=== PATIENT | male | born 1950 | race Caucasian/White ===

== ENCOUNTER 2019-01-04 03:13 | Emergency (ER) | payer MEDICARE ==
[~2019-01-04] VITALS: Ht 172.7 cm; Wt 107.5 kg
[~2019-01-04 03:13] MED LIST: ALPRAZOLAM 0.0.25 M1 PO; ALTACE5 M1 PO; ASPIRIN325; CYCLOBENZAPRINE10 MG PO; DIOVAN; DIOVAN160 MG PO; FISH OIL 1,0001 EAC5; HYDROCODON-ACE1 EAC7 PO; LISINOPRIL40 MG PO; MEDROLDOSEPACK PO; METOPROLOL; MULTIVITAMINS1 EAC7; NAPROSYN500 MG PO; NITROSTAT0.4 MG SUBLING; PERCOCET 5-3251 EACH PO; PLAVIX 75 MG TA75 M1 PO; RAMIPRIL; SIMVASTATIN; SIMVASTATIN80 MG PO; TOPROL XL25 MG PO; TRAMADOL 50 MG50 MG PO
[2019-01-04] MEDS ORDERED: MEDROLDOSEPACK PO (04:29)
[2019-01-04 04:44] VITALS: BP 152/66
== END 2019-01-04 04:51 | disposition home or self-care (01) ==
LOC: M.ERS 03:13
DX: M25.552 Pain in left hip (principal); I10 Essential (primary) hypertension; Z95.5 Presence of coronary angioplasty implant and graft

== ENCOUNTER 2019-12-25 22:10 | Inpatient (IN) | payer MEDICARE ==
[~2019-12-25] VITALS: Ht 172.7 cm; Wt 117.9 kg
--- NOTE | ~2019-12-25 | CON ---
[address] [address] CONSULTATION Name: NARENNORMA Room: [address] IN M.R.#: [id number] Admission: 12/26/19 Attend Phys: Dillon Gu MD Discharge: Date of : 54 Report #: [id number] THIS REPORT FOR: //name// cc: Juan F Tobin MD, Frank W. MD ~ THIS REPORT FOR: //name// CC: Dillon Tobin DATE OF SERVICE: 12/26/2019 REQUESTING PHYSICIAN: Dillon Gu MD INDICATION FOR CONSULTATION: Shortness of breath. HISTORY OF PRESENT ILLNESS: This is a 69-year-old gentleman. Past medical history is as mentioned below. This does include a history of COPD. The patient uses p.r.n. albuterol, but does not take any other inhalers regularly at home. He is an active smoker until last month. The patient has now presented with progressively increasing shortness of breath over the last 2 weeks. He has had a cough as well, but there is minimal sputum. There is no chest pain. He does not have upper respiratory complaints. He does, however, have swelling of lower extremities. There is no calf pain. The patient has had disturbed sleep at night as well as sleepiness during the day. These complaints are at baseline. The patient has previously not been on supplemental oxygen. Since admission, he has been needing oxygen at 2-3 liters to maintain O2 saturation in the low 90s. This hypoxia is new. I asked him 12 questions for review of systems. The patient's review of systems is negative except as mentioned above. PAST MEDICAL HISTORY: COPD; obesity with a body mass index of 39.6; coronary artery disease, has a history of stents in 2008, I do not have any measure of his left ventricular ejection fraction available at this time; hypertension; hernia repair; surgery on left femoral artery for a clot; chronic renal insufficiency. The patient's baseline creatinine is around 1.3. The patient states that his PCP told him that he had renal injury from meloxicam. SOCIAL HISTORY: He has an extensive history of smoking more than a pack a day for several decades, discontinued 1 month ago. No known history of heavy alcohol use or illegal drug use except the patient says that he vapes as well at times. CURRENT MEDICATIONS: List in [facility] [place] [address] CONSULTATION Name: NORMA SNEED Room: [address]#: [id number] Admission: 12/26/19 Attend Phys: Dillon Gu MD Discharge: Date of : 54 Report #: [id number] HOME MEDICATIONS: In [facility] also reviewed. ALLERGIES: No known drug allergies. FAMILY HISTORY: No pertinent family history. PHYSICAL EXAMINATION: GENERAL: Alert, awake and oriented, does not appear to be in any distress at this time. VITAL SIGNS: He has a pulse of 100 and a blood pressure of 164/66. He has a low-grade elevation in temperature to 37.4, respiratory rate around 16-17 at the time of my examination. He is saturating 96%. He is on 2 liters oxygen via nasal cannula. HEENT: Head is normocephalic and atraumatic. He appears to have a narrow airway. NECK: Does not show raised JVP, asymmetry, mass, or lymph nodes. CHEST: Symmetrical expansion on inspection and palpation. On auscultation, breath sounds are bilaterally equal, decreased. No added sounds. HEART: Regular, no murmur. ABDOMEN: Soft and nontender. EXTREMITIES: Lower extremities show 2+ edema. There is no calf tenderness. SKIN: Dry and intact. NEUROLOGICAL: Moves all extremities bilaterally equally and spontaneously with no focal deficit identified. LABORATORY DATA: The patient has had a CTA chest performed today. I reviewed the CT as well as the films. There are minimal radiopaque densities at bilateral lung bases, which could indicate small areas of atelectasis or eschar. Infiltrates will be unlikely, but small infiltrates are possible. The patient's CBC as well as chemistries are in Plix and these are reviewed. D-dimer was mildly elevated. COVID-19 PCR is pending. COVID-19 antigen was negative. ASSESSMENT/PLAN: 1. Shortness of breath. Primarily, the patient appears to have shortness of breath secondary to fluid overload. There likely is a smaller component of bronchospasm as well. There is no definite evidence of infection at this time; however, I feel that it is reasonable to rule out COVID-19. COVID-19 PCR is pending at this time. 2. Fluid overload. The etiology of the patient having fluid overload needs to be evaluated further. Note that his creatinine at baseline is mildly elevated. Also, the possibility of congestive heart failure needs to be evaluated. The patient does not appear to be in any distress at this time and he has recently received IV dye. Therefore, I will repeat labs now; however, I did not order any Lasix at this time. This will be a consideration later. Recommend a 2D echo. Also [place] [address] CONSULTATION Name: NORMA SNEED Room: [address]#: [id number] Admission: 12/26/19 Attend Phys: Dillon Gu MD Discharge: Date of : 54 Report #: [id number] 3. Chronic obstructive pulmonary disease exacerbation. I do feel that there is a component of bronchospasm and therefore I do feel that we should continue with DuoNebs. Suggest keeping the patient in a negative-pressure room until the COVID-19 PCR is back. We will continue Solu-Medrol, but we will begin to taper. 4. Chronic renal insufficiency. Baseline creatinine 1.3, which is his current also. 5. Hypersomnia/sleep disturbances. It appears likely that the patient has underlying obstructive sleep apnea. Recommend an outpatient sleep study later. Also recommend weight loss. 6. Acute bronchitis. While at first glance, it appears unlikely that infection is playing a major role in the patient's current presentation, I feel that it is reasonable to treat him with broad-spectrum antibiotics. The patient is currently on ceftriaxone. I will continue the same. 7. Coronary artery disease, history of stents. Note that the patient is on Plavix. 8. Deep venous thrombosis prophylaxis. The patient is on Lovenox. Thanks for this consultation. By: [id number] 1914Aolga Bernal MD /nt
[~2019-12-25 22:10] MED LIST changes: -MULTIVITAMINS1 EAC7; +MULTIVITAMINS1 EAC7 PO
[2019-12-25 22:24] VITALS: BP 128/55
[2019-12-25 23:16] LABS: ABSOLUTE BASOPHILS 0.1 thou/uL (0.0-0.2); ABSOLUTE EOSINOPHILS 0.7 thou/uL (0.0-0.7); ABSOLUTE MONOCYTES 0.8 thou/uL (0.0-1.2); ABSOLUTE NEUTROPHILS 5.8 thou/uL (1.6-8.1); EOSINOPHILS 7.5 %; LYMPHOCYTES 21.3 %; MCH 32.5 pg (26.0-34.0); MCHC 34.1 g/dL (28.0-37.0); MCV 95.4 fL (80.0-100.0); MONOCYTES 8.3 %; MPV 7.7 fl. (7.2-11.1); NUCLEATED RBCS 0 /100WBC; PLATELET COUNT* 269 thou/uL (150-400); POLYS 61.9 %; RDW-CV 14.1 % (10.5-14.5); WBC 9.4 thou/uL (4.0-11.0)
[2019-12-25 23:24] LABS: CALCIUM 8.1 mg/dL (8.5-10.1); CREATININE 1.3 mg/dL (0.6-1.3); POTASSIUM 4.2 mmol/L (3.5-5.1)
[2019-12-25 23:25] LABS: PROTIME 10.3 Seconds (9.20-11.50)
[2019-12-25 23:35] LABS: ALBUMIN 3.5 g/dL (3.4-5.0); TOTAL BILIRUBIN 0.4 mg/dL (<0.1-1.0); TOTAL PROTEIN 7.1 g/dL (6.4-8.2)
[2019-12-26] MEDS ORDERED: PROAIR HFA8.5 GM INH (02:10)
[2019-12-26] MEDS ORDERED: NORVASC 2.5 MG2.5 M1 (02:11)
[2019-12-26] MEDS ORDERED: AVAPRO 150 MG150 M1 PO (02:11)
[2019-12-26 03:22] VITALS: BP 147/77
[2019-12-26 03:26] VITALS: BP 128/55
[2019-12-26 08:20] VITALS: BP 140/71
--- NOTE | 2019-12-26 09:46 | EKG ---
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1950 Requested By: Dillon Gu Order Number: [id number] Linnette MD: Jak Orona Measurements Intervals [place] Rate: 70 P: 73 OR: 134 QRS: 22 QRSD: 104 T: 2 QT: 408 QTc: 441 Interpretive Statements Sinus rhythm artifact noted Abnormal R-wave progression, early transition Borderline repolarization abnormality Compared to ECG 12/26/2012 15:53:20 No significant changes Electronically Signed On 12-26-2019 9:46:18 CDT by Jak Orona [email or web address] <ELECTRONICALLY SIGNED> By: Jak Orona MD, [facility] 12/26/19 0946 19 19 Jak Orona MD, [facility] /EPI
[2019-12-26 12:00] VITALS: BP 145/69
--- NOTE | 2019-12-26 12:09 | NUR ---
Pt is A&O. Resides at home at home with his . Independent. Pt uses a walker PRN for back issues. No home o2. No hx of HH or SNF. Hx of outpt therapy. Goal is home at dc, does not anticipate any needs, but is open to HH if needed.
[2019-12-26 16:00] VITALS: BP 164/66
[2019-12-26 18:43] LABS: CALCIUM 8.3 mg/dL (8.5-10.1); CREATININE 1.5 mg/dL (0.6-1.3); MAGNESIUM 1.7 mg/dL (1.8-2.4); POTASSIUM 4.2 mmol/L (3.5-5.1)
--- NOTE | 2019-12-26 18:59 | NUR ---
PT PENDING COVID RESULTS ON AEROSOL TREATMENTS SO MOVING TO 233 PT IS SOA AND ON 2L NC NEW IV PLACED IN LFA PT UP AD LYLA STEADY COUGH NOTED PT STATED HE SPITS UP BUT DOESN'T KNOW WHAT IT LOOKS LIKE DID NOT OBSERVE MYSELF DENIES PAIN OR DISCOMFORT CALL LIGHT IN REACH
[2019-12-26 20:00] VITALS: BP 164/97
[2019-12-27 00:30] VITALS: BP 144/64
--- NOTE | 2019-12-27 05:59 | NUR ---
ASSUMED PATIENT CARE AT 1900. PATIENT ALERT AND ORIENTED TIMES FOUR. NO COMPLAINTS OF PAIN OR DISCOMFORT NOTED. IN COVID PRECAUTIONS WASITING RESULTS OF SEND-OUT, RAPID COVID NEGATIVE. RT REMOVED OXYGEN AT APPROX 0400. PATIENT SATURATION 93%-96%. DOOR LINER AND HOURLY ROUNDING OCOMPLETED CHARTED
[2019-12-27 08:55] VITALS: BP 142/71
[2019-12-27 09:35] LABS: HEMATOCRIT 40.3 % (42.0-52.0); HEMOGLOBIN 13.5 gm/dL (14.0-18.0); MCH 31.8 pg (26.0-34.0); MCHC 33.4 g/dL (28.0-37.0); MCV 95.4 fL (80.0-100.0); MPV 7.8 fl. (7.2-11.1); NUCLEATED RBCS 0 /100WBC; PLATELET COUNT* 297 thou/uL (150-400); RBC 4.23 mil/uL (4.50-6.00); RDW-CV 14.8 % (10.5-14.5); WBC 19.4 thou/uL (4.0-11.0)
[2019-12-27 09:47] LABS: CALCIUM 8.8 mg/dL (8.5-10.1); CREATININE 1.3 mg/dL (0.6-1.3); POTASSIUM 4.2 mmol/L (3.5-5.1)
[2019-12-27 10:32] LABS: ABSOLUTE LYMPHOCYTES 1.2 thou/uL (0.8-5.3); ABSOLUTE MONOCYTES 0.4 thou/uL (0.0-1.2); ABSOLUTE NEUTROPHILS 17.8 thou/uL (1.6-8.1); PLATELET ESTIMATE ADEQUATE
[2019-12-27 11:55] VITALS: BP 140/57
[2019-12-27 16:00] VITALS: BP 125/60
--- NOTE | 2019-12-27 18:08 | NUR ---
PATIENT RESTING IN BED. PATIENT IS UP AD LYLA IN ROOM. PATIENT DENIES ANY PAIN. PATIENT DENIES ANY TROUBLE BREATHING. PATIENT IS ON ROOM AIR. PATIENT DENIES ANY NEEDS AT THIS TIME. CALL LIGHT WITHIN REACH.
[2019-12-27 20:00] VITALS: BP 150/90
[2019-12-28] VITALS: BP 152/82
[2019-12-28 04:00] VITALS: BP 115/61
--- NOTE | 2019-12-28 06:00 | NUR ---
Alert and oriented x 4. He is up independently in the room. His vitals are stable and he is sinus rhythym on the monitor. He does have wheezing in his lungs and is receiving breathing treatments. He has slept well.
[2019-12-28 07:55] VITALS: BP 144/81
[2019-12-28 10:11] LABS: ABSOLUTE LYMPHOCYTES 0.9 thou/uL (0.8-5.3); ABSOLUTE MONOCYTES 0.3 thou/uL (0.0-1.2); ABSOLUTE NEUTROPHILS 17.1 thou/uL (1.6-8.1); BASOPHILS 0.2 %; HEMATOCRIT 41.2 % (42.0-52.0); HEMOGLOBIN 13.7 gm/dL (14.0-18.0); LYMPHOCYTES 4.8 %; MCH 31.7 pg (26.0-34.0); MCHC 33.3 g/dL (28.0-37.0); MCV 95.4 fL (80.0-100.0); MONOCYTES 1.6 %; MPV 8.1 fl. (7.2-11.1); NUCLEATED RBCS 0 /100WBC; PLATELET COUNT* 316 thou/uL (150-400); POLYS 93.4 %; RBC 4.32 mil/uL (4.50-6.00); RDW-CV 14.8 % (10.5-14.5); WBC 18.3 thou/uL (4.0-11.0)
[2019-12-28 10:42] LABS: ALBUMIN 3.7 g/dL (3.4-5.0); CALCIUM 8.2 mg/dL (8.5-10.1); CREATININE 1.3 mg/dL (0.6-1.3); MAGNESIUM 2.2 mg/dL (1.8-2.4); POTASSIUM 3.8 mmol/L (3.5-5.1); TOTAL BILIRUBIN 0.4 mg/dL (<0.1-1.0); TOTAL PROTEIN 7.3 g/dL (6.4-8.2)
[2019-12-28 12:07] VITALS: BP 128/69
--- NOTE | 2019-12-28 12:31 | 2DMMODE ---
[place] [address] 2 D/M-MODE ECHOCARDIOGRAM Name: NORMA SNEED Room: [place] [address] ADM IN .R.#: [id number] Admission: 12/26/19 Attend Phys: Dillon Gu, Discharge: Date of : 54 Date of Service: 12/28/19 1231 Report #: [id number] THIS REPORT FOR: cc: Juan F Tobin MD, Frank W. MD Blick,Jak Wallace MD [facility] ~ APPROVED REPORT Study performed: 12/28/2019 09:25:20 EXAM: Comprehensive 2D, Doppler, and color-flow Echocardiogram Patient Location: In-Patient Room #: [facility] Status: routine BSA: 2.28 HR: 87 bpm BP: 144/81 mmHg Rhythm: NSR Other Information Study Quality: Good Indications Dyspnea 2D Dimensions IVSd: 14.63 (7-11mm) LVOT Diam: 20.26 (18-24mm) LVDd: 50.82 mm PWd: 13.38 (7-11mm) Ascending Ao: 31.36 (22-36mm) LVDs: 32.18 (25-40mm) Aortic Root: 32.37 mm Volumes Left Atrial Volume (Systole) LA ESV Index: 23.70 mL/m2 Aortic Valve AoV Peak Kiel.: 1.71 m/s AO Peak Gr.: 11.71 mmHg LVOT Max P.13 mmHg AO Mean Gr.: 6.16 mmHg LVOT Mean P.40 mmHg LVOT Max V: 1.51 m/s AO V2 VTI: 32.30 cm LVOT Mean V: 0.96 m/s DOLORES (VTI): 2.93 cm2 LVOT V1 VTI: 29.35 [place] [address] 2 D/M-MODE ECHOCARDIOGRAM Name: NORMA SNEED Room: [address] IN ..#: [id number] Admission: 12/26/19 Attend Phys: Dillon Gu, Discharge: Date of : 54 Date of Service: 12/28/19 1231 Report #: [id number] Mitral Valve E/A Ratio: 1.10 MV Decel. Time: 205.90 ms MV E Max Kiel.: 1.17 m/s MV PHT: 59.71 ms MVA (PHT): 3.68 cm2 TDI E/Lateral E': 14.63 E/Medial E': 11.70 Medial E' Kiel.: 0.10 m/s Lateral E' Kiel.: 0.08 m/s Pulmonary Valve PV Peak Kiel.: 1.34 m/s PV Peak Gr.: 7.23 mmHg Tricuspid Valve RAP Estimate: 5.00 mmHg TR Peak Gr.: 47.86 mmHg RVSP: 52.00 mmHg PA Pressure: 52.00 mmHg Left Ventricle The left ventricle is normal size. There is normal LV segmental wall motion. Mild concentric left ventricular hypertrophy. Left ventricular systolic function is normal. The left ventricular ejection fraction is within the normal range. LVEF is 60-65%. The left ventricular diastolic function is normal. Right Ventricle Right ventricle is dilated. The right ventricular systolic function is normal. Atria The left atrium size is normal. Right atrium is dilated. Aortic Valve The Aortic valve is sclerotic. No aortic regurgitation is present. There is no aortic valvular stenosis. Mitral Valve The mitral valve is normal in structure. Trace mitral regurgitation. No evidence of mitral valve stenosis. Tricuspid Valve The tricuspid valve is normal in structure. Trace tricuspid regurgitation. estimated pa pressure 55 [place] [address] 2 D/M-MODE ECHOCARDIOGRAM Name: NARENNORMA Dee Room: [address] IN [facility]#: [id number] Admission: 12/26/19 Attend Phys: Dillon Gu, Discharge: Date of : 54 Date of Service: 12/28/19 1231 Report #: [id number] Pulmonic Valve The pulmonary valve is normal in structure. There is no pulmonic valvular regurgitation. Great Vessels The aortic root is normal in size. IVC is normal in size and collapses >50% with inspiration. Pericardium There is no pericardial effusion. <Conclusion> Mild concentric left ventricular hypertrophy. LVEF is 60-65%. The Aortic valve is sclerotic. Trace tricuspid regurgitation. estimated pa pressure 55 mm Hg <ELECTRONICALLY SIGNED> By: Jak Orona MD, FACC 12/28/19 1231 1231 1231 Jak Orona MD, FACC /INF
[2019-12-28 16:23] VITALS: BP 114/54
--- NOTE | 2019-12-28 17:14 | NUR ---
PATIENT RESTING UP IN CHAIR. PATIENT IS UP IN ROOM AD LYLA. PATIENT DENIES ANY PAIN. PATIENT IS ON ROOM AIR. PATIENT DENIES ANY TROUBLE BREATHING. PATIENT HAS GOOD APPETITE. PATIENT DENIES ANY NEEDS AT THIS TIME. CALL LIGHT WITHIN REACH.
[2019-12-28 20:00] VITALS: BP 141/72
[2019-12-29 00:10] VITALS: BP 132/62
[2019-12-29 04:33] VITALS: BP 157/76
[2019-12-29 05:01] LABS: ABSOLUTE LYMPHOCYTES 0.9 thou/uL (0.8-5.3); ABSOLUTE MONOCYTES 0.3 thou/uL (0.0-1.2); ABSOLUTE NEUTROPHILS 14.2 thou/uL (1.6-8.1); BASOPHILS 0.2 %; HEMATOCRIT 39.2 % (42.0-52.0); HEMOGLOBIN 13.2 gm/dL (14.0-18.0); LYMPHOCYTES 5.6 %; MCH 32.2 pg (26.0-34.0); MCHC 33.7 g/dL (28.0-37.0); MCV 95.7 fL (80.0-100.0); MONOCYTES 2.3 %; MPV 8.1 fl. (7.2-11.1); NUCLEATED RBCS 0 /100WBC; PLATELET COUNT* 277 thou/uL (150-400); POLYS 91.9 %; RBC 4.09 mil/uL (4.50-6.00); RDW-CV 14.6 % (10.5-14.5); WBC 15.4 thou/uL (4.0-11.0)
[2019-12-29 05:20] LABS: CREATININE 1.5 mg/dL (0.6-1.3); MAGNESIUM 2.1 mg/dL (1.8-2.4)
--- NOTE | 2019-12-29 05:50 | NUR ---
ASSESSMENT COMPLETED AT BEDSIDE WITH PT, PLEASE REFER TO CHARTING FOR DETAILS. MEDICATIONS ADMINISTERED PER MAR. HOURLY ROUNDING FOR PT SAFETY COMPLETED. PT REPORTS NO PAIN OR DISCOMFORT. CURRENTLY RESTING IN BED WITH CALL LIGHT WITHIN REACH.
[2019-12-29 08:30] VITALS: BP 145/81
[2019-12-29] MEDS ORDERED: SINGULAIR 10 MG10 M1 PO (12:31)
[2019-12-29] MEDS ORDERED: MAXZIDE-25 MG1 EACH PO (12:31)
[2019-12-29] MEDS ORDERED: PREDNISONE 10 M10 MG PO (12:31)
[2019-12-29] MEDS ORDERED: WELLBUTRIN 75 M75 M1 PO (14:18)
[2019-12-29 14:46] VITALS: BP 145/81
[2019-12-29 15:40] VITALS: BP 145/81
== END 2019-12-29 15:41 | disposition home or self-care (01) | DRG 177 ==
LOC: M.ERS 22:10 → M.TBA-ER 12-26 02:40 → M.2W 12-26 02:47
PROVIDERS: Emergency Medicine; Internal Medicine Critical Care Medicine; ADMIT Internal Medicine; ATTEND Internal Medicine
DX: J15.6 Pneumonia due to other Gram-negative bacteria (principal); J96.01 Acute respiratory failure with hypoxia; I50.31 Acute diastolic (congestive) heart failure; I13.0 Hypertensive heart and chronic kidney disease with heart failure and stage 1 through stage 4 chronic kidney disease, or unspecified chronic kidney disease; J44.1 Chronic obstructive pulmonary disease with (acute) exacerbation; J44.0 Chronic obstructive pulmonary disease with (acute) lower respiratory infection; Z20.828 Contact with and (suspected) exposure to other viral communicable diseases; I25.10 Atherosclerotic heart disease of native coronary artery without angina pectoris; N18.9 Chronic kidney disease, unspecified; E87.70 Fluid overload, unspecified; G47.10 Hypersomnia, unspecified; J20.9 Acute bronchitis, unspecified; I27.20 Pulmonary hypertension, unspecified; I25.2 Old myocardial infarction; Z95.5 Presence of coronary angioplasty implant and graft; Z87.891 Personal history of nicotine dependence; Z79.899 Other long term (current) drug therapy

== ENCOUNTER → 2020-02-28 | Outpatient (CLI) | payer MEDICARE ==
[~2020-02-28] MED LIST changes: +AVAPRO 150 MG150 M1 PO; +MAXZIDE-25 MG1 EACH PO; +NORVASC 2.5 MG2.5 M1; +PREDNISONE 10 M10 MG PO; +PROAIR HFA8.5 GM INH; +SINGULAIR 10 MG10 M1 PO; +WELLBUTRIN 75 M75 M1 PO
--- NOTE | 2020-03-05 14:30 | SLEEP ---
[address] [address] SLEEP STUDY REPORT Name: NARENNORMA Price Room: [facility]#: [id number] Admission: 02/28/20 Attend Phys: Emir Bernal MD Discharge: Date of : 54 Report #: [id number] THIS REPORT FOR: //name// CC: Emir Bernla [facility] This study has been reviewed in its entirety by a board certified sleep specialist DATE OF SERVICE: 02/28/2020 SLEEP STUDY INDICATION FOR SLEEP STUDY: Excessive daytime sleepiness. INTERPRETATION: Total duration of the study is 402 minutes, out of which he was asleep for 204 minutes with an overall sleep efficiency decreased to 50.8%. Sleep onset initially occurred around half an hour after lying down in bed and was delayed. REM onset occurred 162 minutes after sleep onset. N1 sleep duration was 14%, N2 duration was 56%, N3 duration was 18% and REM duration was 12%. This is a split-night sleep study. The patient was initially not on positive airway pressure therapy for 130 minutes, out of which he was asleep for 35 minutes. This entire duration was in non-REM sleep. The patient did have multiple sleep-related respiratory events. At this point, these included 10 central apneas in addition to 12 obstructive apneas and 55 hypopneas. The overall apnea-hypopnea index is 117. Body position data indicates that no supine sleep was recorded during the diagnostic portion of the sleep study. Mean heart rate was 74. Periodic limb movement index was mildly elevated to 13.7. Arousal index was markedly elevated to 84. There were several desaturations recorded as well. O2 saturation, however, was mostly maintained at or above 88%. The patient was subsequently placed on positive airway pressure therapy and was observed on positive airway pressure therapy for 272 minutes. This included 169 minutes of sleep time, which in turn included 24 minutes of REM sleep. Mean heart rate was now 71. Periodic limb movement index was higher at 36.6; however, most arousals were not associated with limb movement. Arousal index improved to 31.2. A review of the positive airway pressure titration indicates the patient was initially placed on a CPAP. The patient, however, failed CPAP therapy. He developed central events on CPAP, also had difficulty exhaling against the CPAP pressure. The patient was therefore switched over to a BiPAP and was titrated on BiPAP, various BiPAP pressures ranging from 8/4-17/8 [place] [address] SLEEP STUDY REPORT Name: NORMA SNEED Room: [facility]#: [id number] Admission: 02/28/20 Attend Phys: Emir Bernal MD Discharge: Date of : 54 Report #: [id number] did have a favorable response to BiPAP therapy; however, some hypopneas and desaturations did continue to occur. Complete correction of the patient's sleep disordered respirations was not observed on a BiPAP pressure of 16/8. The patient's apnea-hypopnea index was improved to 9.8. An O2 saturation is maintained at or above 88%. The patient, however, only spent 31 minutes of sleep on this BiPAP pressure on a slightly lower BiPAP pressure of 15/6. The apnea-hypopnea index is higher at 43 with several sleep-related respiratory events, mostly hypopneas occurring. IMPRESSION: 1. Severe sleep apnea with an apnea-hypopnea index of 116.6. There is a component of both central as well as obstructive sleep apnea. As noted above, the duration of time the patient was asleep during the diagnostic portion of the sleep study is limited. Therefore, the patient's actual apnea-hypopnea index in a sustained sleep may in fact be lower than observed here. Regardless, the patient does have severe sleep apnea. 2. The patient failed CPAP therapy. 3. There is a favorable response to BiPAP therapy. Complete correction of the patient's sleep-disordered respirations was not, however, observed with the BiPAP. RECOMMENDATIONS: 1. I recommend proceeding with placing the patient on a BiPAP of 16/8 with a spontaneous rate and heated humidity and mask per the patient's preference while asleep. 2. We will plan on following with memory card data with or without a nocturnal pulse oximetry. If the patient fails to be adequately controlled with this therapy, then I will consider bringing the patient back to the sleep lab for performing a repeat BiPAP titration to further define his optimal BiPAP pressures. 3. Recommend weight loss. 4. Recommend avoiding driving or other activities requiring vigilance if drowsy. This entire sleep study was reviewed by a board certified sleep physician. <ELECTRONICALLY SIGNED> By: Emir Bernal MD 03/05/20 1430 2332 [id number] Bernal MD /nt
== END ==
LOC: M.SLEEPLAB 02-07 21:00
PROVIDERS: ATTEND Internal Medicine Critical Care Medicine
DX: G47.33 Obstructive sleep apnea (adult) (pediatric) (principal); G47.19 Other hypersomnia; J44.9 Chronic obstructive pulmonary disease, unspecified; G25.81 Restless legs syndrome; I27.20 Pulmonary hypertension, unspecified; I25.10 Atherosclerotic heart disease of native coronary artery without angina pectoris; I10 Essential (primary) hypertension; Z95.5 Presence of coronary angioplasty implant and graft; Z79.899 Other long term (current) drug therapy

== ENCOUNTER → 2020-02-29 | Outpatient (CLI) | payer MEDICARE ==
--- NOTE | 2020-03-05 14:30 | PF ---
[address] [address] PULMONARY FUNCTION REPORT Name: NORMA SNEED Room: [facility]#: [id number] Admission: 02/29/20 Attend Phys: Emir Bernal MD Discharge: Date of : 54 Report #: [id number] THIS REPORT FOR: //name// CC: Emir Bernal [facility] DATE OF SERVICE: 02/29/2020 The FEV1/FVC ratio has decreased to 65% with a forced vital capacity decreased to 72% and FEV1 decreased to 63%. The [id number] is also decreased to 37%. After the administration of a bronchodilator, there is a 10% increase in the patient's FEV1. This is below criteria for reversibility. The patient's post-bronchodilator FEV1 is 2.15 L. The flow volume loop is concave upwards. The total lung capacity has decreased to 69% with a residual volume decreased to 64%. The DLCO as adjusted for hemoglobin is also decreased to 55%. IMPRESSION: 1. Moderate obstruction with some improvement with albuterol, which is below criteria for reversibility. 2. There is restriction noted with a total lung capacity decreased to 69%. 3. The DLCO as adjusted for hemoglobin is decreased to 55%. <ELECTRONICALLY SIGNED> By: Emir Bernal MD 03/05/20 1430 2315 [id number] lorena Vo
== END ==
LOC: M.PUL 02-08 09:00
PROVIDERS: ATTEND Internal Medicine Critical Care Medicine
DX: J44.9 Chronic obstructive pulmonary disease, unspecified (principal); G25.81 Restless legs syndrome

== ENCOUNTER 2020-04-06 17:37 | Emergency (ER) | payer MEDICARE ==
[~2020-04-06] VITALS: Ht 170.2 cm; Wt 122.5 kg
[2020-04-06] MEDS ORDERED: NORCO 5-325 TA1 EAC2 PO (18:47)
[2020-04-06] MEDS ORDERED: FLEXERIL PO (18:47)
[2020-04-06 19:02] VITALS: BP 152/69
== END 2020-04-06 19:04 | disposition home or self-care (01) ==
LOC: M.ERS 17:37
DX: S20.212A Contusion of left front wall of thorax, initial encounter (principal); I10 Essential (primary) hypertension; I25.2 Old myocardial infarction; Z95.5 Presence of coronary angioplasty implant and graft; Z98.890 Other specified postprocedural states; Z79.899 Other long term (current) drug therapy; X50.1XXA Overexertion from prolonged static or awkward postures, initial encounter; Y93.89 Activity, other specified; Y92.89 Other specified places as the place of occurrence of the external cause; Y99.8 Other external cause status

== ENCOUNTER → 2020-12-21 | Outpatient (CLI) | payer MEDICARE ==
[~2020-12-21] MED LIST changes: +FLEXERIL PO; +NORCO 5-325 TA1 EAC2 PO
--- NOTE | 2021-01-07 14:51 | SLEEP ---
[address] [address] SLEEP STUDY REPORT Name: NORMA SNEED Room: [facility]#: [id number] Admission: 12/21/20 Attend Phys: Emir Bernal MD Discharge: Date of : 54 Report #: [id number] THIS REPORT FOR: cc: Juan F Tobin MD, Frank W. MD Pervez, Adeel MD ~ DATE OF STUDY: 12/21/2020 INDICATION FOR SLEEP STUDY: Very severe obstructive sleep apnea, currently on BiPAP therapy with improvement, but not full control of daytime sleepiness and nocturnal pulse oximetry showing significant hypoxemia with BiPAP in place. INTERPRETATION: Total duration of the study is 418 minutes, out of which he was asleep for 362 minutes with an overall sleep efficiency of 87%. Sleep onset initially occurred 6 minutes of lying down in bed and REM onset occurred 6 minutes after sleep onset. N1 sleep duration is 13%, N2 duration is 41%. There is no N3 sleep recorded. REM sleep duration is 46%. Mean heart rate is 51. Periodic limb movement index is mildly elevated to 13.8. However, most limb movements are not associated with arousals. Periodic limb movement index with arousals of 0.2. Overall arousal index is normal at 6.1. Mean heart rate during the sleep study was 51. This is a BiPAP titration. Review of the BiPAP titration indicates the patient was initially placed on a BiPAP of 8/4, which was gradually increased to 14/8 with the administration of a BiPAP of 14/8. There is marked improvement in the patient's obstructive sleep apnea noted, occasional sleep related respiratory events, primarily central apneas do continue to occur, but apnea-hypopnea index is now improved to 6.9. O2 saturation is adequately maintained on the final BiPAP pressure. Overall, the patient was observed in the supine position for 16 minutes, the rest of the time he was in other positions. IMPRESSION: Very severe obstructive sleep apnea with a marked improvement noted with the administration of a BiPAP of 14/8, O2 saturation is adequately maintained on this therapy. Occasional sleep related respiratory events do continue to occur, most of these that is more than 50% are of central origin. RECOMMENDATIONS: The patient currently is on a BiPAP of 16/8. I am inclined to continue with this current therapy and not change his BiPAP pressures. However, if the patient is to remain symptomatic, then I would recommend switching him over to a BiPAP AutoSV Advanced as most of the residual events that is more than 50% are of central origin and further adjustment in regular BiPAP pressures is not likely to improve these; however, I strongly recommend weight loss, which is likely to have a significant impact on his sleep apnea. Recommend avoiding driving and other activities requiring [place]ance [place] [address] SLEEP STUDY REPORT Name: NORMA SNEED Room: [facility]#: [id number] Admission: 12/21/20 Attend Phys: Emir Bernal MD Discharge: Date of : 54 Report #: [id number] His entire sleep study was reviewed by board certified sleep physician. <ELECTRONICALLY SIGNED> By: Emir Bernal MD 01/07/21 1451 0746 [id number] Bernal MD /nt
== END ==
LOC: M.SLEEPLAB 20:54
PROVIDERS: ATTEND Internal Medicine Critical Care Medicine
DX: G47.33 Obstructive sleep apnea (adult) (pediatric) (principal); G47.31 Primary central sleep apnea

== ENCOUNTER → 2021-01-31 | Outpatient (CLI) | payer MEDICARE ==
[~2021-01-31] VITALS: Ht 172.7 cm; Wt 117.0 kg
[2021-01-31] VITALS (9 sets, daily range): BP systolic 110–160; BP diastolic 51–76
[~2021-01-31] MED LIST changes: +APAP W/CODEINE1 TA2 PO; +BREO ELLIPTA 11 EACH; +LIPITOR40 MG PO; +NEURONTIN300 MG PO; +NORVASC10 MG PO; +TOPROL XL100 MG PO
[2021-01-31 10:33] LABS: HEMATOCRIT 39.8 % (42.0-52.0); HEMOGLOBIN 13.3 gm/dL (14.0-18.0); MCH 30.4 pg (26.0-34.0); MCHC 33.3 g/dL (28.0-37.0); MCV 91.1 fL (80.0-100.0); MPV 7.7 fl. (7.2-11.1); RBC 4.36 mil/uL (4.50-6.00); RDW-CV 15.1 % (10.5-14.5); WBC 14.2 thou/uL (4.0-11.0)
[2021-01-31 10:43] LABS: ANION GAP 10 mmol/L (7-16); BUN 29 mg/dL (7-18); CALCIUM 8.8 mg/dL (8.5-10.1); CHLORIDE 105 mmol/L (98-107); CO2 24 mmol/L (21-32); CREATININE 1.3 mg/dL (0.6-1.3); GLUCOSE 99 mg/dL (70-99); POTASSIUM 4.2 mmol/L (3.5-5.1); SODIUM 139 mmol/L (136-145)
[2021-01-31 10:45] LABS: APTT 24.1 Seconds (25.0-31.3); PROTIME 10.5 Seconds (9.20-11.50)
[2021-01-31 10:56] LABS: ALBUMIN 3.6 g/dL (3.4-5.0); ALKALINE PHOSPHATASE 105 U/L (46-116); CHOLESTEROL 107 mg/dL (<200); HDL CHOLESTEROL 47 mg/dL (>40); LDL CHOLESTEROL 44 mg/dL (<100); SERUM ASSESSMENT Clear; SGOT 11 U/L (15-37); SGPT 26 U/L (30-65); TC:HDL 2.3 Ratio (Not establshd); TOTAL BILIRUBIN 0.4 mg/dL (<0.1-1.0); TRIGLYCERIDE 81 mg/dL (<150); VLDL 16 mg/dL (<40)
--- NOTE | 2021-01-31 11:03 | EKG ---
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
--- NOTE | 2021-02-10 11:00 | CARD ---
[address] [address] CARDIAC CATH REPORT Name: NORMA SNEED Room: [facility].#: [id number] Admission: 01/31/21 Attend Phys: Jak Orona MD, F Discharge: Date of : 54 Report #: [id number] THIS REPORT FOR: cc: Juan F Tobin MD, Frank W. MD Blick, David R. 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 Procedure Narrative The patient was brought electively to the Cardiac Catheterization Laboratory and was prepped and draped in a sterile manner. The right wrist was infiltrated with 1% Lidocaine subcutaneous anesthesia. IV conscious sedation was used throughout procedure with appropriate monitoring and was performed in the presence of a registered nurse who was an independent trained observer other than the physician [address] [address] CARDIAC CATH REPORT Name: NORMA SNEED Room: [facility]#: [id number] Admission: 01/31/21 Attend Phys: Jak Orona MD, F Discharge: Date of : 54 Report #: [id number] performing the procedure. A 6 sheath was inserted into the right radial artery. Coronary angiography was performed using coronary diagnostic catheters. The right coronary system was accessed and visualized with a Diagnostic catheter. The left coronary system was accessed and visualized with a Diagnostic catheter. The left ventricle was accessed and visualized with a Diagnostic catheter. Left ventricular/Aortic Valve gradient assessed via catheter pullback. Left ventriculogram was performed in TRUJILLO projection. Closure device was deployed with a 6 Fr vascband. The patient tolerated the procedure well and there were no complications associated with the procedure. There was no hematoma. Intraoperative Conscious Sedation Sedation start time: 12:31 Case end Time: 12:51 Versed 2.0 mg Fluoro Time: 3.2 minutes Dose: DAP 87686 cGycm2 1019 mGy Contrast Type and Amount: visipaque 85 ml Coronary Angiography The patient's coronary anatomy is right dominant. Diagnostic Cath Left Main 0% stenosis LAD Stent in the proximal LAD had a 30% restenosis. The apical LAD had a 80% distal stenosis. Diagonal 2 Proximal stent had a 30% restenosis. Circumflex 40% mid stenosis Right Coronary Proximal stent had a 30% restenosis. Left Ventriculography The left ventricular ejection fraction is estimated to be 45-50%. Left ventricular wall motion abnormalities are present. There is no mitral insufficiency. Mild hypokinesis of the anterolateral wall. Hemodynamics The aortic pressure is 114/57 mmHg with a mean of 79 mmHg. The left ventricular pressure is 121/10/43 mmHg with a mean of mmHg. The left ventricular end diastolic pressure is 20 mmHg. There was no gradient across the aortic valve upon pullback. Pullback from the left ventricle to the aorta revealed no gradient [place] [address] CARDIAC CATH REPORT Name: NORMA SNEED Room: [facility]#: [id number] Admission: 01/31/21 Attend Phys: Jak Orona MD, F Discharge: Date of : 54 Report #: [id number] Conclusion 1. No restenosis noted of stents in the LAD, diagonal branch of the LAD, and the RCA. 2. LVEF 45-50%. Recommendations Aggressive Medical Therapy <ELECTRONICALLY SIGNED> By: Jak Orona MD, [facility] 02/10/21 1100 1100 1100Davikika Orona MD, FACC /INF
== END | disposition home or self-care (01) ==
LOC: M.CL 09:06
PROVIDERS: ATTEND Internal Medicine Cardiovascular Disease
DX: R94.39 Abnormal result of other cardiovascular function study (principal); I25.10 Atherosclerotic heart disease of native coronary artery without angina pectoris; I10 Essential (primary) hypertension; J44.9 Chronic obstructive pulmonary disease, unspecified; I73.9 Peripheral vascular disease, unspecified; E78.00 Pure hypercholesterolemia, unspecified; F17.210 Nicotine dependence, cigarettes, uncomplicated; Z98.890 Other specified postprocedural states; Z79.899 Other long term (current) drug therapy; Z20.822 Contact with and (suspected) exposure to COVID-19

== ENCOUNTER → 2021-06-02 | Outpatient (CLI) | payer MEDICARE | LOC: M.CT 09:40 | PROVIDERS: ATTEND Internal Medicine Critical Care Medicine | DX: I25.10 Atherosclerotic heart disease of native coronary artery without angina pectoris (principal); I51.7 Cardiomegaly; Z87.891 Personal history of nicotine dependence ==

== ENCOUNTER 2021-06-19 19:02 | Emergency (ER) | payer MEDICARE ==
[~2021-06-19] VITALS: Ht 172.7 cm; Wt 108.9 kg
[2021-06-19 19:33] LABS: ABSOLUTE BASOPHILS 0.1 thou/uL (0.0-0.2); ABSOLUTE EOSINOPHILS 0.2 thou/uL (0.0-0.7); ABSOLUTE LYMPHOCYTES 1.6 thou/uL (0.8-5.3); ABSOLUTE MONOCYTES 1.1 thou/uL (0.0-1.2); BASOPHILS 0.7 %; EOSINOPHILS 1.8 %; HEMATOCRIT 40.8 % (42.0-52.0); HEMOGLOBIN 13.6 gm/dL (14.0-18.0); LYMPHOCYTES 11.9 %; MCH 30.6 pg (26.0-34.0); MCHC 33.4 g/dL (28.0-37.0); MCV 91.6 fL (80.0-100.0); MONOCYTES 8.7 %; MPV 7.6 fl. (7.2-11.1); NUCLEATED RBCS 0 /100WBC; PLATELET COUNT* 312 thou/uL (150-400); POLYS 76.9 %; RBC 4.46 mil/uL (4.50-6.00); RDW-CV 14.8 % (10.5-14.5); WBC 13.1 thou/uL (4.0-11.0)
[2021-06-19 19:42] LABS: CALCIUM 8.4 mg/dL (8.5-10.1); CREATININE 1.3 mg/dL (0.6-1.3); POTASSIUM 5.2 mmol/L (3.5-5.1)
[2021-06-19 19:52] LABS: ALBUMIN 3.7 g/dL (3.4-5.0); MAGNESIUM 2.2 mg/dL (1.8-2.4); TOTAL BILIRUBIN 0.6 mg/dL (<0.1-1.0); TOTAL PROTEIN 7.4 g/dL (6.4-8.2)
[2021-06-19] MEDS ORDERED: PREDNISONE50 MG PO (22:24)
[2021-06-19 22:32] VITALS: BP 143/69
--- NOTE | 2021-06-20 09:38 | EKG ---
[place] [address] ELECTROCARDIOGRAM REPORT Name: NORMA SNEED Room: [facility]#: [id number] Admission: 06/19/21 Attend Phys: Discharge: 06/19/21 Date of : 54 Date of Service: 06/19/211911 Report #: [id number] THIS REPORT FOR: //name// [facility] ED Test Date: 2021-06-19 Test Time: 19:12:48 Pat Name: NORMA SNEED Department: Room: Gender: Director Park: [facility] : 1950 Requested By: Irene Bruno Order Number: [id number] : Jak Orona Measurements Intervals Cabins Rate: 59 P: 42 VA: 122 QRS: 27 QRSD: 91 T: 56 QT: 410 QTc: 407 Interpretive Statements Sinus rhythm Compared to ECG 01/31/2021 10:35:02 rate has increased Electronically Signed On 06-20-2021 9:37:54 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 06/20/21936 11 11 Jak Orona MD, [facility] /EPI
== END 2021-06-19 22:33 | disposition home or self-care (01) ==
LOC: M.ERS 19:02
PROVIDERS: Emergency Medicine
DX: R06.00 Dyspnea, unspecified (principal); Z20.822 Contact with and (suspected) exposure to COVID-19; I10 Essential (primary) hypertension; I25.2 Old myocardial infarction; Z98.890 Other specified postprocedural states; Z79.51 Long term (current) use of inhaled steroids; Z79.899 Other long term (current) drug therapy